=== PATIENT | male | born 1975 | race African-American/Black ===

== ENCOUNTER → 2023-07-30 07:10 | Outpatient (REF) | payer BC, SELFPAY | LOC: DHCBC HW 07:10 | PROVIDERS: ATTENDING PHYSICIAN Internal Medicine; FAMILY PHYSICIAN Registered Nurse | DX: I10 Essential (primary) hypertension (principal); I51.7 Cardiomegaly; R94.31 Abnormal electrocardiogram [ECG] [EKG] | CPT/HCPCS: 93306 ==